=== PATIENT | female | born 1985 | race Hispanic/Latino ===

== ENCOUNTER 2020-03-09 23:30 | Emergency (ER) | payer BC ==
[2020-03-10] MEDS ORDERED: Ketorolac Tromethamine 30 MG/ML VIAL ONE (00:31)
[2020-03-10] MEDS ORDERED: diphenhydrAMINE 50 MG/ML VIAL ONE (00:31)
[2020-03-10] MEDS ORDERED: Metoclopramide HCl 10 MG/2 ML VIAL ONE (00:31)
[2020-03-10] MEDS ORDERED: Magnesium 2 GM/50 ML BAG (IN WATER) ONE (00:31)
[2020-03-10 18:25] LABS: SARS-CoV-2 MS2 Positive; SARS-CoV-2 N Gene Negative; SARS-CoV-2 S Gene Negative; SARS-CoV-2 by NAA Not Detected (NotDetected); SARS-CoV-2 orf1ab Negative
== END 2020-03-10 01:52 | disposition home or self-care (01) ==
LOC: BURERS 23:30
DX: G43.909 Migraine, unspecified, not intractable, without status migrainosus (principal); Z20.822 Contact with and (suspected) exposure to COVID-19
CPT/HCPCS: 87635; 96365; 96375; J1200; J1885; J2765; J3475; U0003